=== PATIENT | male | born 1970 | race Caucasian/White ===

== ENCOUNTER 2024-11-13 06:28 | Day surgery (SDC) | payer BC, SELFPAY | END 2024-11-13 10:07 | disposition home or self-care (01) | LOC: GI 06:28 | PROVIDERS: ATTENDING PHYSICIAN Surgery | DX: Z12.11 Encounter for screening for malignant neoplasm of colon (principal); K64.8 Other hemorrhoids; K57.30 Diverticulosis of large intestine without perforation or abscess without bleeding; D12.0 Benign neoplasm of cecum; D12.3 Benign neoplasm of transverse colon; D12.4 Benign neoplasm of descending colon; D12.5 Benign neoplasm of sigmoid colon; Z83.719 Family history of colon polyps, unspecified | CPT/HCPCS: 45385; 45381; 88305 ==

== ENCOUNTER 2024-11-21 05:01 | Observation (INO) | payer BC, SELFPAY ==
[2024-11-21] VITALS (15 sets, daily range): BP systolic 105–155; BP diastolic 64–89; PULSE 62–93; BMI 27.1; BMI 26.0
[2024-11-21 01:10] LABS: % Basophils 0.8 % (0-2); % Immature Granulocytes 1.5 % (0-0.5); % Lymphocytes 30.4 % (20.5-51.1); % Monocytes 8.1 % (1.7-9.3); % Neutrophils 56.2 % (42.2-75.2); Absolute Basophils 0.1 10^3/uL (0-0.2); Absolute Eosinophils 0.3 10^3/uL (0-0.7); Absolute Immature Granulocytes 0.2 10^3/uL (0-0.05); Absolute Lymphocytes 3.2 10^3/uL (1.2-3.4); Absolute Monocytes 0.9 10^3/uL (0.1-0.6); Hematocrit 36.3 % (39.0-52.0); Hemoglobin 12.3 g/dL (13.0-18.0); Mean Corp Hgb Conc. 33.9 g/dL (33.0-37.0); Mean Corpuscular Hgb 31.4 pg (27.0-31.0); Mean Corpuscular Volume 92.6 fL (80.0-94.0); Mean Platelet Volume 8.9 fL (7.4-10.4); Nucleated Red Blood Cells % 0 % (-); Platelet Count 324 10^3/uL (130-400); Red Blood Cell Count 3.92 10^6/uL (4.70-6.10); Red Cell Dist. Width 12.9 % (11.5-14.5); White Blood Cell Count 10.6 10^3/uL (4.8-10.8)
[2024-11-21 01:21] LABS: ALT (SGPT) 27 U/L (0-50); AST (SGOT) 21 U/L (17-59); Albumin 3.6 g/dl (3.5-5.0); Alkaline Phosphatase 64 U/L (38-126); Blood Urea Nitrogen 30 mg/dl (9-20); Calcium 8.8 mg/dl (8.4-10.2); Carbon Dioxide 25 mmol/L (22-30); Chloride 105 mmol/L (98-107); Estimated Creatinine Clearance 67 ml/min; Glucose 171 mg/dl (70-99); Potassium 3.7 mmol/L (3.5-5.1); Sodium 140 mmol/L (135-145); Total Bilirubin 0.4 mg/dl (0.2-1.3); Total Protein 5.9 g/dl (6.3-8.2); eGFR > 60.00
[2024-11-21 01:24] LABS: APTT 25.8 Sec (23.4-35.0); INR 1.12; PT 14.7 Sec (11.4-14.6)
--- NOTE | 2024-11-21 01:49 | ED.GENMED ---
History of Present Illness
General
Chief Complaint: Rectal Bleeding
Time Seen by Provider: 11/21/24 01:03
History of Present Illness
History of Present Illness:
Patient is a 54-year-old man with history of multiple polyps removed on 11 13 presenting to the emergency department with rectal bleeding and near syncopal event. Patient states that he woke up to use the bathroom with lightheaded dizzy sat on the
toilet was extremely nauseous. He noticed significant amount of blood in the toilet. He states that his nausea and lightheadedness worsen as he was sitting on the toilet and that he fell forward hitting his head. He does not remember fully
passing out. He is not on a blood thinner. He does state that he had multiple large polyps removed. Per chart review his colonoscopy was on 11/13 that did show multiple polyps as well as diverticulosis. At this time patient states that he feels
generally weak and does have ongoing bleeding.
Phy Exam
Physical Exam
Physical Exam:
GENERAL: in no acute distress
HEENT: 4 cm irregular laceration to the left side of the forehead, normocephalic, extraocular movements intact, moist oral mucosa
NECK: normal inspection
RESPIRATORY: no respiratory distress, clear to auscultation bilaterally
CARDIOVASCULAR: regular rate and rhythm
ABDOMEN/: soft, non-distended, non-tender to palpation, no rebound or guarding
EXTREMITIES: non-tender, no edema/swelling
NEUROLOGIC: awake and alert, moves all extremities
SKIN: warm
Course
Orders/Labs/Results
Orders:
Orders
11/21/24 00:58
Type+Screen Urgent
Complete Blood Count/With Diff Urgent
Comprehensive Metabolic Panel Urgent
PTT Urgent
Prothrombin Time Urgent
11/21/24 01:00
Electrocardiogram (*1) Urgent
Reason for Study: Fatigue / Weakness
EKG- Treatment ONCE
11/21/24 01:19
ABO2 Urgent
BBK Wristband Number:
Associate notified that ABO2 has been ordered: [id number]
Date: 11/21/24
Time: 01:04
Dimpling Machine Operator ID: [id number]
11/21/24 01:29
CT Abd/pelvis Angio W/wo Iv Urgent
Comment:
Reason For Exam: rectal bleeding with clots
CT Cervical Spine W/o Iv Contr Urgent
Comment:
Reason For Exam: fall
CT Head W/o Iv Contrast Urgent
Comment:
Reason For Exam: fall
11/21/24 01:51
Tetanus/Diphth/Acelpertussis [Adacel] 0.5 ml IM .ONCE ONE
11/21/24 03:26
Admit/Transfer Patient As Directed
Co-Sign Provider:
Level of Care: Observation services
Assign to:: Telemetry
Physician / Group: hospitalist
Diagnosis: lower GI bleed
Reason for Telemetry: Other
Other Reason for Telemetry: gi bleed
Date to Stop Telemetry: 11/23/24
Time to Stop Telemetry: 11:00
Code Status As Directed
Resuscitation Status: Full Code
PRN Pain Medication Management As Directed
May give lesser potent ordered pain med per pt: Yes
preference::
Protocol:: Medication orders for pain may be administered in a
manner that supports deferring to patient preference
when the pt is:
- Requesting an ordered lesser potent pain medication.
Least to most potent pain medications are defined
as: acetaminophen < NSAID < tramadol < opioids
(morphine, oxycodone, hydromorphone).
- Requesting a lesser dose of the same medication IF
ORDERED.
- Requesting a less intrusive route of administration
if both routes are prescribed by the provider (PO <
IV).
11/21/24 05:50
Acetaminophen [Tylenol] 650 mg PO Q6HPRN PRN
Dextrose 5%/0.45%Sodchl 1000ML [D5/0.45%NaCl] 1,000 ml IV 75 mls/hr
Ondansetron Injectable [Zofran] 4 mg IV Q6HPRN PRN
11/21/24 05:50
Consult Notification Routine
Specialty to Notify: Gastroenterology
Date consulting provider notified: 11/21/24
Time consulting provider notified: 07:26
Notified:: Provider
Comment: Sahil
GASTROINTESTINAL CONSULT Routine
Consulting Provider: Angel Baxter
Was physician already notified: No
Reason for consult: lower gi bleed, s/p screening colonoscopy on 11/13
Activity As Directed
Activity Level: With Assistance
INT (Intravenous Needle Therapy) As Directed
Comment: Place 2 IV catheters of the largest bore possible until stable
Orthostatic Vital Signs As Directed
Orthostatic VS Frequency: Daily
Pneumatic Compression Sleeves As Directed
Type: Knee high
Vital Signs As Directed
Frequency: Per unit guidelines
DX Deep Vein Thrombosis Video Routine
11/21/24 05:56
Complete Blood Count/No Diff IN AM
11/21/24 14:26
H&H Q8H
11/23/24 11:00
DC Protocol for Telemetry ONCE
Abnormal Lab Results
11/21/24
00:58
RBC 3.92 L 10^6/uL
(4.70-6.10)
Hgb 12.3 L g/dL
(13.0-18.0)
Hct 36.3 L %
(39.0-52.0)
MCH 31.4 H pg
(27.0-31.0)
Abs Immat Gran (auto) 0.2 H 10^3/uL
(0-0.05)
Absolute Monos (auto) 0.9 H 10^3/uL
(0.1-0.6)
Immature Gran % 1.5 H %
(0-0.5)
PT 14.7 H Sec
(11.4-14.6)
BUN 30 H mg/dl
(9-20)
Glucose 171 H mg/dl
(70-99)
Total Protein 5.9 L g/dl
(6.3-8.2)
11/21/24 00:58
11/21/24 00:58
Vital Signs
Initial and Last Documented VS:
Initial Vital Signs
BP
134/89
11/21/24 00:54
Last Documented Vital Signs
Temp Pulse Resp BP Pulse Ox
98.2 F 69 18 129/79 97
11/22/24 14:53 11/22/24 14:53 11/22/24 14:53 11/22/24 14:53 11/22/24 14:53
Procedures
Laceration Closure
Left Forehead:
Status of Wound: clean
Size of Wound in cm: 4
Description of Wound Edges: sharp
Preparation: cleaned with saline
Revision/Debridement: routine- no revision
Wound exploration: explored to base- no FB
Type of Closure: Dermabond-skin glue and other (steri strips)
MDM/Problems Addressed
Differential Diagnosis Includes:
Patient is a 54-year-old man presenting to the emergency department with bright red blood per his rectum as well as a near syncopal event. On arrival patient's blood pressure is normal. He does have a laceration to the left side of his forehead
but his abdomen is benign. He did does have ongoing bright red bleeding. Concern for traumatic intracranial injuries will obtain CT scan of the head and neck. Will also CT scan of the abdomen pelvis to evaluate for any active bleeding. Will
update patient's tetanus and repair his laceration. Patient will need admission for hemoglobin monitoring and further evaluation by GI if he has ongoing bleeding.
After shared decision making patient would prefer to use Dermabond and Steri-Strips for laceration as he would like to avoid sutures. I did clean the wound and it was not gaping and held without any tension to I did proceed with Steri-Strips and
Dermabond. Patient has had no further episodes of significant GI bleeding while he has been here. His vital signs remain unremarkable. CT scan of the head per my interpretation with no obvious hemorrhage. Pending preliminary reads for CT head
C-spine and abdomen pelvis with angio. Discussed with hospitalist who accepted patient to their service.
*Critical Care Note
Total Time (30-74mins, 75-104mins- exclusive of procedures): Not Applicable
ED Attending Note
-
Portions of this chart may have been created with voice recognition software.� Occasional wrong word or��sound alike� substitutions may have occurred due to the inherent limitations of voice recognition software.
Discharge Plan
Departure
Patient Disposition: Admit
Date of Disposition: 11/21/24
Time of Disposition: 02:39
Presentation/result/management discussed w/ accepting MD/DO: Hospitalist
Discharge Problem:
GI bleed, Laceration
Interventions
Interventions:
*Risk Screen - Suicide Last Done: 11/21/24 00:56
*General Assessment Last Done: 11/21/24 00:56
*Neglect/Abuse Screening Last Done: 11/21/24 00:56
*ED- Fall Risk Assessment Last Done: 11/21/24 07:41
*ED COVID-19 Vaccine History Last Done: 11/21/24 01:12
*Nursing Disposition Last Done: 11/21/24 12:55
GL-Odyuut-Cymqifxonn Assessment Last Done: 11/21/24 01:12
ED- Cardiac Assessment Last Done: 11/21/24 01:12
ED- Pulmonary Assessment Last Done: 11/21/24 01:12
Discharge Date and Time
Discharge Date/Time: 11/21/24 12:56
[2024-11-21] MEDS: ADACEL 0.5 ML IM (02:00)
--- NOTE | 2024-11-21 03:16 | HPS.HSE ---
Family Physician
-
Family Physician: Leon Barger
Chief Complaint
-
Rectal bleeding
History of Present Illness
This is a 54 y.o male with no significant past medical history coming to the hospital with rectal bleeding.
Patient had a colonoscopy 1 week ago. Report indicated removal of several polyps including large sessile polyp requiring clips. He also had diverticulosis seen on the colonoscopy. This was done for screening purposes. Patient had no immediate
post procedure complications. He did resume his usual diet and was doing very well up until evening prior to coming to the emergency department. Patient reported that the last 2 days he did have significant stressors at work. He reports strenuous
or activity with increased intra-abdominal pressure this is work. He denies any NSAID use. He denies any aspirin use. He denies any supplements. Patient denies having any abdominal pain. He denies any nausea or vomiting. He reported that he
woke up in usual state of health did notice possibility of a small streak of blood in his stool in the morning.
Later on in the evening he felt the need for a bowel movement as he sat on the commode he immediately had bloody stools. He felt very weak and wanted to lean his head over his hands and he fell over the commode. He hit the floor. He denies loss
of consciousness. He immediately noticed that he had a laceration on his left forehead. He was helped up and was able to get up. He still felt weak and dizzy. He then had another bloody bowel movement. At this time his saw him and he
appeared ashen. Ambulance was called and patient was brought to the emergency department.
In the emergency department he was found to be normotensive with a blood pressure of 120/70 pulse was 63 and was satting 99% on room air. His hemoglobin was 12.3 with normal platelet count. INR was normal. Electrolytes BUN/creatinine were normal.
ECG shows a normal sinus rhythm at rate of 63.
He had a CT of the head which was negative for any acute intracranial process. CT of the C-spine was also negative for cervical spine injury. CT of the abdomen and pelvis is pending.
Medical History
Past Medical History
Past Medical History: Reports Hypercholesterolemia
Past Surgical History: Reports Urological (vasectomy) and Other (hernia repair)
Social History
Tobacco: Non-smoker
Alcohol: Occasional
Drug: None
Personal:
Living: With Family
Employment: Employed
Family History
Family History: Not pertinent
Allergies / Home Medications
Allergies reflects when Allergies were last updated in [employer].
Home Medications with original date entered in [employer]
Allergy/Medication List:
Allergies
Allergy/AdvReac Type Severity Reaction Status Date / Time
Enviornmental Allergy Congestion Uncoded 11/21/24 00:54
No home medications
Review of Systems
-
History Source: Patient
Constitutional: Reports No Symptoms
Respiratory: Reports No Symptoms
Cardiac: Reports No Symptoms
Abdomen/GI: Reports Bloody Stools
: Reports No Symptoms
Musculoskeletal: Reports No Symptoms
Skin: Reports No Symptoms
Neurological: Reports No Symptoms
Endocrine: Reports No Symptoms
Hematologic/Lymphatic: Reports No Symptoms
Psych: Reports No Symptoms
Physical Exam
Vital Signs
Vital Signs
Temp Pulse Resp BP Pulse Ox
97.6 F 63 10 121/77 99
11/21/24 00:56 11/21/24 02:15 11/21/24 02:15 11/21/24 01:00 11/21/24 02:15
Physical Exam
General: Well Developed, Well Nourished, No Apparent Distress and Comfortable
HEENT: NormoCephalic, Anicteric, Moist mucous membranes and Atraumatic
Respiratory: Clear
Cardiac: S1/S2 and Regular Rhythm
Breast: Deferred by me
GI: Soft, Non Tender, Non Distended and Normal Bowel Sounds
Rectal: Deferred by Provider
Genito-urinary: Deferred by me
Musculoskeletal: No Clubbing, No Cyanosis and No Edema
Skin: Warm
Neuro: AO x 3 and Nonfocal/grossly intact
Hematologic/Lymphatic: No Lymphadenopathy
Psych: Calm
Laboratory Results
-
11/21/24 00:58
11/21/24 00:58
Laboratory Results
PT 14.7 Sec (11.4-14.6) H 11/21/24 00:58
INR 1.12 11/21/24 00:58
APTT 25.8 Sec (23.4-35.0) 11/21/24 00:58
Total Bilirubin 0.4 mg/dl (0.2-1.3) 11/21/24 00:58
AST 21 U/L (17-59) 11/21/24 00:58
ALT 27 U/L (0-50) 11/21/24 00:58
Alkaline Phosphatase 64 U/L (38-126) 11/21/24 00:58
Data Reviewed
-
CT Scan: Report Reviewed by me
Medical Tests (Nuc Med, Echo, EKG etc): Image Personally Visualized and interpreted
Lab Data: Labs Reviewed by me
Old Records: Reviewed
Impression/Plan
-
IMPRESSION:
54 y.o coming in with rectal bleeding POD 7 after screening colonoscopy. @ large bms with only blood. HD stable. Hgb 12. No blood bms since arrival in ED. No thinners. No NSAIDS. Unclear why he had delayed bleeding from colonoscopy. The
procedure did involve removal of several polyps larges being 35mm at splenic flexure requiring clips and a 20mm polyp in the proximal descending colon. Diverticulosis and non-bleeding internal hemorrhoids noted. Cannot rule out hemorrhoid bleed.
Plan -
GI Bleed - stable patient
- admit to telemetry
- type and screen
- clear liquid diet for now
- gentle hydration
- H&H q 8 hours
- if significant bleed will get GI bleeding scan and IR
- GI consult in am
DVT PPX - SCDs
Code status - full code
[2024-11-21] MEDS: D5/0.45%NACL 1000 IV ×2 (06:12→20:48)
[2024-11-21] MEDS: FLUSH (NSS) 1 FLUSH IV (06:13)
[2024-11-21 06:17] LABS: Hematocrit 34.4 % (39.0-52.0); Hemoglobin 12.1 g/dL (13.0-18.0); Mean Corp Hgb Conc. 35.2 g/dL (33.0-37.0); Mean Corpuscular Hgb 31.9 pg (27.0-31.0); Mean Corpuscular Volume 90.8 fL (80.0-94.0); Mean Platelet Volume 9.1 fL (7.4-10.4); Platelet Count 308 10^3/uL (130-400); Red Blood Cell Count 3.79 10^6/uL (4.70-6.10); Red Cell Dist. Width 12.8 % (11.5-14.5); White Blood Cell Count 8.4 10^3/uL (4.8-10.8)
--- NOTE | 2024-11-21 10:56 | W.PN.HOSP.TC ---
Today's Communication/Plan
-
Trend hemoglobin and hematocrit
Avoid AC and antiplatelets
Clear liquid diet
Colorectal consult
Tele and orthostats
Assessment / Plan
Assessment / Plan
#Lower GI bleeding
#Acute blood loss anemia
#Diverticulosis
#S/p colon polypectomy (POD 7-8)
-Differential diagnosis include post polypectomy bleeding versus diverticular bleed
-Previously with 35 mm splenic flexure polyp and 20 mm descending colon polyp removed, precancerous
-Colonoscopy also reportedly with diverticulosis; patient states he thinks he had 1 diverticula
-Had multiple bowel movements on day of arrival with bright red blood; Hgb 12.3�12.1
-Had bowel movements this morning with less red blood though still present per his history
-Continue to trend hemoglobin every 8 hours, avoid chemical AC and antiplatelets
-Transfuse hemoglobin for symptoms of anemia or hemoglobin <7
-Clear liquid diet for now
-Colorectal consult, GI following
#Presyncope
#Left cranial abrasion
-Suspect vasovagal phenomenon; cannot rule out orthostasis; less likely cardiogenic versus neurogenic
-States he does not remember if he actually passed out, very short timeframe, quickly improved
-CT head and CT C-spine without contrast were unremarkable for any traumatic findings or ICH
-Will check orthostatic vital signs
-Monitor on telemetry for signs of arrhythmia
DVT prophylaxis: SCDs
Diet: Clear liquids
CODE STATUS: Full code
Anticipated Discharge: Within 24 hours
Subjective/Interval History
-
Date of Service: November 21, 2024
Seen and examined at the bedside. No acute events reported overnight. AFVSS this morning.
Hemoglobin stable with trend here 12.2�12.1 on 2 lab draws. Patient states he had bowel movement today with some red blood though improved from yesterday
Denies any new complaints this morning.
Objective Data
-
Labs:
Laboratory Results
11/21/24 11/21/24 11/21/24
00:58 05:56 14:00
WBC 10.6 8.4
Hgb 12.3 L 12.1 L Pending
Hct 36.3 L 34.4 L Pending
Plt Count 324 308
PT 14.7 H
INR 1.12
APTT 25.8
Sodium 140
Potassium 3.7
Chloride 105
Carbon Dioxide 25
BUN 30 H
Creatinine 1.3
Glucose 171 H
Calcium 8.8
Total Bilirubin 0.4
AST 21
ALT 27
Alkaline Phosphatase 64
Vital Signs:
Vital Signs
Temp Pulse Resp BP Pulse Ox
97.6 F 65 14 109/74 97
11/21/24 00:56 11/21/24 09:00 11/21/24 09:00 11/21/24 09:00 11/21/24 09:00
Review of Systems
-
History Source: Patient
All other systems: Reviewed and negative
Physical Exam
-
General: Well Developed, Well Nourished, No Apparent Distress and Comfortable
HEENT: Normocephalic, Atraumatic, Moist Mucous Membranes and Anicteric
Respiratory: Clear to Auscultation and Non Labored Respirations
Cardiac: Regular Rhythm and S1/S2; Negative Murmur, Rub or Gallop
GI: Soft, Nontender, Nondistended and Normal Bowel Sounds
Musculoskeletal: No Clubbing, No Cyanosis and No Edema
Skin: Warm, Dry and Normal Turgor; Negative Rash
Neuro: AO x 3 and Nonfocal/Grossly Intact; Negative Tremors
Psych: Calm
Data Reviewed
-
Labs: Labs Reviewed by me, Discussed with Physician (Gastroenterology) and Discussed with Patient
[2024-11-21 14:56] LABS: Hematocrit 34.6 % (39.0-52.0); Hemoglobin 11.7 g/dL (13.0-18.0)
--- NOTE | 2024-11-21 15:05 | PTCARENOTE ---
pt arrived to unit at 1245 via stretcher from the ER, IVF running. pt ambulated from hallway to bed with standby assist. VSS. pt oriented to unit, assessment and admissions completed by this nurse.
--- NOTE | 2024-11-21 15:52 | CON.CRS ---
Medical History
-
History of Present Illness:
Patient is a 54-year-old male with no PMH who presents after an episode of blood per rectum and syncope. He underwent colonoscopy 1 week ago with myself and had 8 polyps removed, 3 removed via hot snare. Initially, he did well and only had
spotting of blood on the first day. He returned to work. He admitted that yesterday was as strenuous day with heavy lifting. Last night, he fell asleep on the couch and then woke up with the sudden urge to have a BM. He sat down on the toilet
and all that came out was blood. He then felt woozy and fainted. His found him and called 911. He had a few more episodes of blood per rectum. In the ED, his vitals were within normal limits and his hemoglobin was 12.3. A CT head was done
without acute abnormalities. He was found to have a laceration to the left forehead, which was repaired with Steri-Strips. He underwent a CTA of the abdomen and pelvis, which was negative for active extravasation. In the ED, he did have another
BM, but describes the blood as dark and smaller in amount. Currently, he denies any nausea/vomiting, abdominal pain, chest pain, shortness of breath or perianal pain.
Past Medical History
Past Medical History: Other (Denies)
Past Surgical History: Other (Vasectomy, arm cyst removal)
Social History
Tobacco: Non-Smoker
Alcohol: Occasional
Drug: None
Personal:
Living: With Family
Employment: Employed
Family History
Family History: Reviewed & Not Pertinent
Allergies / Home Medications
Allergy/AdvReac Type Severity Reaction Status Date / Time
Enviornmental Allergy Congestion Uncoded 11/21/24 00:54
�Medication �Instructions �Recorded �Confirmed �Type
No Meds [No Current Medications] 11/21/24 11/21/24 History
Review of Systems
-
A 10 point review of systems was completed, and was negative except as per HPI.
Physical Exam
Vital Signs
Temp 98.2 F 11/21/24 15:46
Pulse 62 11/21/24 15:46
Resp Rate 20 11/21/24 15:46
Blood pressure 137/77 11/21/24 15:46
SaO2 98 11/21/24 15:46
11/20/24 11/21/24 11/22/24
06:59 06:59 06:59
Actual Weight 85.8 kg 82.236 kg
Body Mass Index (BMI) 26.0
Lab Results / Allergies
11/21/24 14:26
11/21/24 00:58
WBC 8.4 10^3/uL (4.8-10.8) 11/21/24 05:56
Hgb 11.7 g/dL (13.0-18.0) L 11/21/24 14:26
Hct 34.6 % (39.0-52.0) L 11/21/24 14:26
Plt Count 308 10^3/uL (130-400) 11/21/24 05:56
Abs Immat Gran (auto) 0.2 10^3/uL (0-0.05) H 11/21/24 00:58
Neutrophils % 56.2 % (42.2-75.2) 11/21/24 00:58
Allergy/AdvReac Type Severity Reaction Status Date / Time
Enviornmental Allergy Congestion Uncoded 11/21/24 00:54
Physical Exam
General: Well Developed, Well Nourished and No Apparent Distress
HEENT: Normocephalic and Atraumatic
Respiratory: Non Labored Respirations
GI: Soft, Non Tender and Non Distended
Skin: Warm and Dry
Neuro: Awake, Alert and AO x 3
Data Reviewed
-
CT Scan: Image Personally Visualized and interpreted, Discussed with Patient and Discussed with Family
Labs: Labs Reviewed by me and Discussed with Patient
Assessment / Plan
-
54-year-old male with PMH of HLD who presents after an episode of blood per rectum and syncope. He underwent colonoscopy 1 week ago with myself and had 8 polyps removed, 3 removed via hot snare. Initially, he did well and only had spotting of
blood on the first day. Last night, he had blood per rectum associated with a syncopal episode and 911 was called. In the ED, his vitals were within normal limits and his hemoglobin was 12.3. A CT head was done without acute abnormalities. He was
found to have a laceration to the left forehead, which was repaired with Steri-Strips. He underwent a CTA of the abdomen and pelvis, which was negative for active extravasation. In the ED, he did have another BM, but describes the blood as dark
and smaller in amount. Currently, he denies any nausea/vomiting, abdominal pain, chest pain, shortness of breath or perianal pain.
AFVSS
Hb 11.7 from 12.1 from 12.3, coags normal
�Blood per rectum, s/p recent colonoscopy with 8 polyps removed, 3 of which removed with hot snare; also found to have diverticulosis
�Source of bleeding most likely from a polypectomy site; other sources could include diverticular and hemorrhoidal
�Vitals are stable and hemoglobin is largely stable; no acute surgical intervention at this moment; would monitor overnight for any more episodes of bleeding
�If bleeding continues, recommend repeat colonoscopy to identify source
�Continue clears
� OOB/IS
� Hold DVT PPx
� Appreciate hospitalist
[2024-11-22 03:37] VITALS: BP 129/77
[2024-11-22 06:20] LABS: Blood Urea Nitrogen 10 mg/dl (9-20); Calcium 8.7 mg/dl (8.4-10.2); Carbon Dioxide 24 mmol/L (22-30); Chloride 104 mmol/L (98-107); Estimated Creatinine Clearance 87 ml/min; Glucose 135 mg/dl (70-99); Potassium 3.8 mmol/L (3.5-5.1); Sodium 137 mmol/L (135-145); eGFR > 60.00
[2024-11-22 07:18] VITALS: BP 146/76
[2024-11-22 08:33] LABS: Hemoglobin 10.6 g/dL (13.0-18.0); Mean Corp Hgb Conc. 34.2 g/dL (33.0-37.0); Mean Corpuscular Hgb 31.5 pg (27.0-31.0); Mean Platelet Volume 8.9 fL (7.4-10.4); Platelet Count 278 10^3/uL (130-400); Red Blood Cell Count 3.37 10^6/uL (4.70-6.10); Red Cell Dist. Width 13.1 % (11.5-14.5); White Blood Cell Count 5.5 10^3/uL (4.8-10.8)
[2024-11-22] MEDS: D5/0.45%NACL 1000 IV (08:33)
--- NOTE | 2024-11-22 10:27 | W.PN.HOSP.TC ---
Today's Communication/Plan
-
Repeat H&H at 1 PM
If hemoglobin stable then escalate diet with hopes to possibly discharge later
If hemoglobin continues to downtrend may need inpatient colonoscopy
Assessment / Plan
Assessment / Plan
#Lower GI bleeding
#Acute blood loss anemia
#Diverticulosis
#S/p colon polypectomy (POD 7-8)
-Differential diagnosis include post polypectomy bleeding versus diverticular bleed
-Previously with 35 mm splenic flexure polyp and 20 mm descending colon polyp removed, precancerous
-Colonoscopy also reportedly with diverticulosis; patient states he thinks he had 1 diverticula
-Had multiple bowel movements on day of arrival with bright red blood; Hgb 12.3�12.1
-Had bowel movements this morning with less red blood though still present per his history
-Continue to trend hemoglobin every 8 hours, avoid chemical AC and antiplatelets
-Transfuse hemoglobin for symptoms of anemia or hemoglobin <7
-Clear liquid diet for now
-Colorectal following
#Presyncope
#Left cranial abrasion
-Suspect vasovagal phenomenon; cannot rule out orthostasis; less likely cardiogenic versus neurogenic
-States he does not remember if he actually passed out, very short timeframe, quickly improved
-CT head and CT C-spine without contrast were unremarkable for any traumatic findings or ICH
-Will check orthostatic vital signs
-Monitor on telemetry for signs of arrhythmia
DVT prophylaxis: SCDs
Diet: Clear liquids
CODE STATUS: Full code
Anticipated Discharge: Within 24 hours
Subjective/Interval History
-
Date of Service: November 22, 2024
Seen and examined at the bedside. No acute events reported overnight. AFVSS this morning
Hemoglobin trend 12.2�12.1�11.7�10.6. Patient states he is noticing less blood in stool, had 1 small bowel movement last night
Denies any new complaints. Denies lightheadedness, chest pain, dyspnea, palpitations
Objective Data
-
Labs:
Laboratory Results
11/22/24 11/22/24 11/22/24
05:17 05:19 13:00
WBC 5.5
Hgb 10.6 L Pending
Hct 31.0 L Pending
Plt Count 278
Sodium 137
Potassium 3.8
Chloride 104
Carbon Dioxide 24
BUN 10
Creatinine 1.0
Glucose 135 H
Calcium 8.7
Vital Signs:
Vital Signs
Temp Pulse Resp BP Pulse Ox
98.0 F 55 17 146/76 98
11/22/24 07:18 11/22/24 07:18 11/22/24 07:18 11/22/24 07:18 11/22/24 08:36
I&O
11/21/24 11/22/24 11/23/24
06:59 06:59 06:59
Intake Total 500 / 500
Balance 500 / 500
Review of Systems
-
History Source: Patient
All other systems: Reviewed and negative
Physical Exam
-
General: Well Developed, Well Nourished, No Apparent Distress and Comfortable
HEENT: Normocephalic, Atraumatic, Moist Mucous Membranes and Anicteric
Respiratory: Clear to Auscultation and Non Labored Respirations
Cardiac: Regular Rhythm and S1/S2; Negative Murmur, Rub or Gallop
GI: Soft, Nontender, Nondistended and Normal Bowel Sounds
Musculoskeletal: No Clubbing, No Cyanosis and No Edema
Skin: Warm, Dry and Normal Turgor; Negative Rash
Neuro: AO x 3 and Nonfocal/Grossly Intact
Psych: Calm
Data Reviewed
-
Labs: Labs Reviewed by me, Discussed with Physician (Colorectal surgery) and Discussed with Patient
--- NOTE | 2024-11-22 10:29 | W.PN.CRS1 ---
Today's Communication / Plan
-
As below
Assessment/Plan
-
54-year-old male with PMH of HLD who presents after an episode of blood per rectum and syncope. He underwent colonoscopy 1 week ago with myself and had 8 polyps removed, 3 removed via hot snare. Initially, he did well and only had spotting of
blood on the first day. Last night, he had blood per rectum associated with a syncopal episode and 911 was called. In the ED, his vitals were within normal limits and his hemoglobin was 12.3. A CT head was done without acute abnormalities. He was
found to have a laceration to the left forehead, which was repaired with Steri-Strips. He underwent a CTA of the abdomen and pelvis, which was negative for active extravasation. In the ED, he did have another BM, but describes the blood as dark
and smaller in amount. Currently, he denies any nausea/vomiting, abdominal pain, chest pain, shortness of breath or perianal pain.
AFVSS
Hb 10.6 from 11.7
�Blood per rectum, s/p recent colonoscopy with 8 polyps removed, 3 of which removed with hot snare; also found to have diverticulosis
�Source of bleeding most likely from a polypectomy site; other sources could include diverticular and hemorrhoidal
�Clinically, patient is improving; Hb with slight drop this a.m.; low suspicion of active bleeding; recommend repeating this afternoon, discussed with Dr. Berg
�If stable, recommend regular diet and DC if tolerating
�If continues dropping, will consider colonoscopy versus continued monitoring
� OOB/IS
� Hold DVT PPx
� Appreciate hospitalist
Subjective Data
Subjective Data
Date of Service: November 22, 2024
Had 1 BM since yesterday, described as a negative stool coated with some dark blood. Otherwise, no additional bleeding since last night.
Denies N/V or abdominal pain. Denies any dizziness or lightheadedness.
Objective Data
-
Vital Signs
Temp Pulse Resp BP Pulse Ox
98.0 F 55 17 146/76 98
11/22/24 07:18 11/22/24 07:18 11/22/24 07:18 11/22/24 07:18 11/22/24 08:36
Intake & Output
11/21/24 11/22/24 11/23/24
06:59 06:59 06:59
Intake Total 500 / 500
Balance 500 / 500
Intake:
Oral fluids 500 / 500
Other:
Number of approximated MODERATE 1
amounts of urine
Lab Results
11/22/24 05:19
Physical Exam
-
General: No Acute Distress and AOx3
HEENT: Grossly Normal
Abdomen: Soft, Non Distended and Non Tender
Skin: Warm and Dry
[2024-11-22 10:50] VITALS: BP 118/79
[2024-11-22 11:25] VITALS: BP 118/79
[2024-11-22 13:18] LABS: Hematocrit 31.4 % (39.0-52.0); Hemoglobin 10.6 g/dL (13.0-18.0)
--- NOTE | 2024-11-22 13:26 | W.DCSUMMARY ---
Discharge Summary
Discharge Data
Date of Admission: 11/21/24
Date of Discharge: 11/22/24
Total time spent discharging patient (in min): 34
-
Pending Results: No
Hospital Course
Discharging Physician :� Charles Berg DO
Disposition :���� Home
Principal Discharge diagnosis :�
Lower GI bleeding
Acute blood loss anemia
Recent colon polypectomy
Diverticulosis
Presyncope
Chronic Discharge diagnosis :�
Colon polyps
Diverticulosis
Hospital Course :�
54-year-old male that presented to the hospital with bright red blood per rectum/hematochezia that started on day of his presentation. Initial hemoglobin was stable in the range of 12 however did have a drop in hemoglobin down towards 10.6 where it
then stabilized. Was started on clear liquid diet on admission and maintained through most of hospitalization. Avoided chemical DVT prophylaxis and other anticoagulants or antiplatelets. Colorectal surgery and GI evaluated the patient. No
indication for urgent endoscopy. As hemoglobin stabilized he was transition to low residue diet. Once tolerating low residue diet was stable for discharge home with outpatient colorectal follow-up. Provided prescription for CBC 1 week after
discharge.
Of note, he did have a presyncopal episode that coincided with his lower GI bleeding. Was monitored in the hospital for signs of arrhythmias or symptom recurrence which did not occur. Orthostatic vital signs were negative. Very likely related to
vasovagal phenomenon versus transient hypotension in the context of blood loss. Remained hemodynamically stable and asymptomatic throughout the rest of hospital stay
Consultants :
Colorectal surgery: Lincoln Iverson MD
Important imaging findings :�
CT A/P w/ IV contrast (11/21/24)
1. No evidence of active gastrointestinal hemorrhage at the time of imaging. Polypectomy clips are seen near the splenic flexure.
2. Mild prostatic enlargement.
Procedure findings :� N/A
Follow-up :
Follow-up with colorectal surgery in 2 weeks from discharge
Follow-up with PCP in 1 to 2 weeks for
Repeat CBC in 7 days as OP
Discharge Plan
-
Patient Disposition: Home (Routine Discharge)
Discharge Diagnosis/Procedures: Lower GI bleeding
Acute blood loss anemia
Status post polypectomy
Diverticulosis
Condition: Good
Diet: Low Residue
Activity: As tolerated
Driving Restrictions: No driving for 24 hours
Bathing Restrictions: None
Blood Work: Repeat CBC in 1 week to recheck hemoglobin
Activity Restrictions/Additional Instructions:
After discharge from the hospital schedule follow-up appointment with your family doctor. Should be seen in office within 1 to 2 weeks of discharge from the hospital
Follow-up with your colorectal surgeon within 1 to 2 weeks of discharge from the hospital
If you notice recurrence of bleeding or develop new symptoms such as lightheadedness/passing out then you should return to the emergency department for reassessment
Instructions: GI bleed - Discharge instructions
Referrals:
Leon Barger MD [Family Provider] -
Lincoln Iverson MD [Active] - in one to two weeks
Prescriptions:
No Action
No Current Medications
0
Discharge Orders:
Discharge Patient (As Directed); Ordered 11/22/24
Ordered By: Charles Berg
Discharge Date and Time
Print Language: SYRIAN
[2024-11-22 14:53] VITALS: BP 129/79
--- NOTE | 2024-11-22 15:37 | CM ---
manager housekeeping reviewed patient's chart and met with patient and patient lives with spouse in a multilevel home, patient is independent with adl's and ambulation, home today no needs.
PCP: Dr. Feng Barger
Pharmacy: [facility] in [place]
Plan; Home no needs.
== END 2024-11-22 15:00 | disposition home or self-care (01) ==
LOC: 3 WEST ACU 05:01
PROVIDERS: Student in an Organized Health Care Education/Training Program; ADMITTING PHYSICIAN Internal Medicine; ATTENDING PHYSICIAN Internal Medicine; EMERGENCY PHYSICIAN Student in an Organized Health Care Education/Training Program; FAMILY PHYSICIAN Family Medicine; OTHER PHYSICIAN Surgery
DX: K92.1 Melena (principal); R55 Syncope and collapse; R42 Dizziness and giddiness; R11.0 Nausea; R53.1 Weakness; R53.83 Other fatigue; R94.31 Abnormal electrocardiogram [ECG] [EKG]; D62 Acute posthemorrhagic anemia; S01.81XA Laceration without foreign body of other part of head, initial encounter; W18.12XA Fall from or off toilet with subsequent striking against object, initial encounter; Y93.89 Activity, other specified; Y92.002 Bathroom of unspecified non-institutional (private) residence as the place of occurrence of the external cause; K64.8 Other hemorrhoids; E78.00 Pure hypercholesterolemia, unspecified; M47.812 Spondylosis without myelopathy or radiculopathy, cervical region; N40.0 Benign prostatic hyperplasia without lower urinary tract symptoms; K57.30 Diverticulosis of large intestine without perforation or abscess without bleeding; Z86.0100 Personal history of colon polyps, unspecified; Z23 Encounter for immunization; Z60.2 Problems related to living alone
CPT/HCPCS: 12013; 70450; 72125; 74174; 80048; 80053; 85014; 85018; 85025; 85027; 85610; 85730; 86850; 86900; 86901; 90471; 90715; 93005; 96365; 96366; 99285; G0378; Q9967

== ENCOUNTER → 2024-11-30 16:56 | Outpatient (REF) | payer BC, SELFPAY ==
[2024-11-30 17:38] LABS: % Basophils 0.7 % (0-2); % Eosinophils 2.3 % (0-6); % Immature Granulocytes 0.5 % (0-0.5); % Lymphocytes 28.5 % (20.5-51.1); % Monocytes 10.2 % (1.7-9.3); % Neutrophils 57.8 % (42.2-75.2); Absolute Basophils 0.1 10^3/uL (0-0.2); Absolute Eosinophils 0.2 10^3/uL (0-0.7); Absolute Lymphocytes 2.4 10^3/uL (1.2-3.4); Absolute Monocytes 0.9 10^3/uL (0.1-0.6); Absolute Neutrophils 4.9 10^3/uL (1.4-6.5); Hematocrit 31.2 % (39.0-52.0); Hemoglobin 10.6 g/dL (13.0-18.0); Mean Corpuscular Hgb 31.2 pg (27.0-31.0); Mean Corpuscular Volume 91.8 fL (80.0-94.0); Mean Platelet Volume 8.8 fL (7.4-10.4); Nucleated Red Blood Cells % 0 % (-); Platelet Count 410 10^3/uL (130-400); White Blood Cell Count 8.4 10^3/uL (4.8-10.8)
== END ==
LOC: REG 16:56
PROVIDERS: ATTENDING PHYSICIAN Internal Medicine; FAMILY PHYSICIAN Family Medicine
DX: K92.2 Gastrointestinal hemorrhage, unspecified (principal)
CPT/HCPCS: 36415; 85025